=== PATIENT | male | born 1950 | race Caucasian/White ===

== ENCOUNTER 2018-01-20 12:24 | Emergency (ER) | payer MEDICARE, BC ==
[~2018-01-20] VITALS: Ht 165.1 cm; Wt 67.3 kg
[2018-01-20 12:29] VITALS: BP 149/70; PULSE 70; RESP 16; TEMP 97.8; O2SAT 98
[2018-01-20 13:48] LABS: BILIRUBIN, URINE NEG (NEG); BLOOD, URINE NEG (NEG); GLUCOSE,URINE NEG (NEG); KETONE, URINE NEG (NEG); MUCUS URINE FEW /lpf (OCC); NITRITE,URINE NEG (NEG); URINE LEUKOCYTE ESTERASE NEG (NEG)
[2018-01-20 13:51] LABS: URINE COLOR STRAW (YELLW/STRAW)
--- NOTE | 2018-01-20 14:57 | PD ---
HPI Chief Complaint: Flank/Kidney Pain Time Seen by Provider: 14:36 Travel History International Travel<30 days: No Contact w/Intl Traveler<30days: No Traveled to known affect area: No History of Present Illness HPI This 67-year-old man who presents to the emergency department complaining of gross hematuria. He has a history of spots on his bladder 16 years ago. He gets followed with cystoscopy and imaging with MRIs yearly. He last had this done in October and reports normal cystoscopy and MRI imaging. Done well until Tuesday he had gross blood in his urine. This happened again last night and this morning. His older mild back discomfort. No significant pain. No nausea or vomiting. No fevers or chills. No other complaints. History Past Medical History Narrative Medical Hyperlipidemia Social History Tobacco Use: No Allergies-Medications (Allergen,Severity, Reaction): Coded Allergies: No Known Allergies (Unverified , 01/20/18) Review of Systems Except as stated in HPI: all other systems reviewed are Neg Physical Exam Narrative GENERAL: Well-appearing 67-year-old man, no acute distress per SKIN: Warm and dry. CARDIOVASCULAR: Warm and well perfused. RESPIRATORY: Normal rate and effort. MUSCULOSKELETAL: No gross deformities per NEUROLOGICAL: Awake and alert. No gross deficits. Data Data Last Documented VS Vital Signs Date Time Temp Pulse Resp B/P (MAP) Pulse Ox O2 Delivery O2 Flow Rate FiO2 01/20/18 12:29 97.8 70 16 149/70 (96) 98 Orders Orders Urinalysis - C+S If Indicated (01/20/18 13:19) Ed Discharge Order (01/20/18 14:57) Labs Laboratory Tests Test 01/20/18 13:26 Urine Color STRAW Urine Turbidity CLEAR Urine pH 5.0 Urine Specific [place] 1.005 Urine Protein NEG mg/dL Urine Glucose (UA) NEG mg/dL Urine Ketones NEG mg/dL Urine Occult Blood NEG Urine Nitrite NEG Urine Bilirubin NEG Urine Urobilinogen LESS THAN 2.0 MG/DL Urine Leukocyte Esterase NEG Urine RBC LESS THAN 1 /hpf Urine Mucus FEW /lpf Microscopic Urinalysis Comment CULT NOT INDICATED MDM Medical Decision Making Medical Screen Exam Complete: Yes Emergency Medical Condition: Yes Interpretation(s) UA, grossly unremarkable. No pyuria. Differential Diagnosis Malignancy, BPH, bladder outlet obstruction, other Narrative Course Medical decision making para 67-year-old man presents to the emergency department with painless gross hematuria. Looks well. History of bladder spots in the past. Recommend outpatient follow-up with his urologist. No evidence of bladder infection. Diagnosis Primary Impression: Hematuria Additional Instructions: Drink plenty of fluids stay well-hydrated. Return emerged department for any worsening pain, fevers or chills, nausea vomiting, or inability to urinate. Follow-up with urologist as soon as you return home. Med/Other Pt SpecificInfo: No Change to Meds Disposition: 01 DISCHARGE HOME Condition: Stable Oscar Beltrán MD Jan 20, 2018 14:57
== END 2018-01-20 15:59 | disposition home or self-care (01) ==
LOC: NEPD 12:24
DX: R31.9 Hematuria, unspecified (principal); E78.5 Hyperlipidemia, unspecified
CPT/HCPCS: 81001; 99283